=== PATIENT | male | born 1980 | race Caucasian/White ===

== ENCOUNTER 2017-08-06 16:15 | Inpatient (IN) | payer OTHER ==
[~2017-08-06] VITALS: Ht 185.4 cm; Wt 120.3 kg
[2017-08-06] MEDS ORDERED: SOD CHLORIDE 0.9% 1,000 ML IV STA (17:24)
[2017-08-06] MEDS ORDERED: ONDANSETRON 4 MG INJ IV STA (17:24)
[2017-08-06] MEDS ORDERED: KETOROLAC 30 MG INJ IV STA (17:24)
[2017-08-06 18:31] LABS: BASOPHIL # 0.1 10^3/ul (0.0-0.1); BASOPHILS % 0.3 % (0.0-2.0); EOSINOPHILS # 0.1 10^3/ul (0.0-0.5); EOSINOPHILS % 0.8 % (0.0-7.0); HEMATOCRIT 44.4 % (42.0-52.0); LYMPHOCYTES # 1.4 10^3/ul (0.8-2.9); LYMPHOCYTES % 8.8 % (15.0-51.0); MEAN CORPUSCULAR HEMOGLOBIN 29.1 pg (29.0-33.0); MEAN CORPUSCULAR HGB CONC 33.8 g/dl (32.0-37.0); MEAN CORPUSCULAR VOLUME 86.2 fl (82.0-101.0); MEAN PLATELET VOLUME 10.9 fl (7.4-10.4); MONOCYTE # 0.6 10^3/ul (0.3-0.9); MONOCYTES % 3.6 % (0.0-11.0); NEUTROPHIL # 13.6 10^3/ul (1.6-7.5); NEUTROPHILS % 86.2 % (39.0-77.0); PLATELET COUNT 353 10^3/UL (140-415); RED BLOOD COUNT 5.15 10^6/ul (4.70-6.10); RED CELL DISTRIBUTION WIDTH 12.4 % (11.5-14.5); WHITE BLOOD COUNT 15.7 10^3/ul (4.8-10.8)
[2017-08-06 18:32] LABS: ADD UMIC NO; UR ASCORBIC ACID 40 mg/dL (NEGATIVE); UR BILIRUBIN (Dip) NEGATIVE (NEGATIVE); UR BLOOD (Dip) NEGATIVE (NEGATIVE); UR CLARITY CLEAR (CLEAR); UR COLOR YELLOW (YELLOW); UR GLUCOSE (Dip) NEGATIVE (NEGATIVE); UR KETONES (Dip) NEGATIVE (NEGATIVE); UR LEUKOCYTE ESTERASE (Dip) NEGATIVE Leu/ul (NEGATIVE); UR NITRITE (Dip) NEGATIVE (NEGATIVE); UR SPECIFIC GRAVITY (Dip) 1.027 (1.003-1.030); UR TOTAL PROTEIN (Dip) NEGATIVE (NEGATIVE); UR UROBILINOGEN (Dip) 1+ mg/dL (NEGATIVE)
[2017-08-06 18:52] LABS: ALBUMIN 4.5 g/dl (3.3-4.9); ALBUMIN/GLOBULIN RATIO 1.25; BILIRUBIN,INDIRECT 0.6 mg/dl (0-1.1); BILIRUBIN,TOTAL 0.6 mg/dl (0.2-1.3); CALCIUM 9.2 mg/dl (8.4-10.2); CREATININE 0.75 mg/dl (0.61-1.24); POTASSIUM 3.9 mmol/L (3.5-5.1); TOTAL PROTEIN 8.1 g/dl (6.1-8.1)
--- NOTE | 2017-08-06 19:07 | RADRPT ---
PROCEDURE: CT Abdomen and Pelvis without contrast. CLINICAL INDICATION: Lower abdominal pain. TECHNIQUE: CT scan of the abdomen and pelvis without contrast was performed on a multidetector hig h-resolution CT scanner. The patient was scanned without intravenous contrast. Coronal and sagittal reformatted images were obtained from the axial source images. Images were reviewed on a high-resol [employer] PACS workstation. The total exam CTDI equals 23.64 mGy and the total exam DLP equals 1521.63 m Gy-cm. One or more of the following dose reduction techniques were used: - Automated exposure control. - Adjustment of the mA and/or kV according to patient size. - Use of iterative reconstruction technique. COMPARISON: None. FINDINGS: The lung bases are clear except for mild posterior dependent atelectasis. The heart size is normal, without pericardial thickening or effusion. The liver is enlarged, measuring up to 20 cm at the right midclavicular line. The liver attenuation is within normal limits. The liver surface appears smooth. There is no evidence of discrete solid he patic mass or intrahepatic biliary ductal dilatation. The gallbladder is unremarkable. The spleen, p ancreas, bilateral adrenal glands, and bilateral kidneys are within normal limits in size, morpholog y, and attenuation. There is no hydronephrosis or hydroureter. No perirenal collection is seen. The small bowel is unremarkable, without evidence of obstruction or focal mural wall thickening. The appendix is fluid-filled and mildly dilated, measuring up to 8 mm in diameter and there is mild per iappendiceal fat stranding / inflammatory change (series 3, image 116; series 601 images 57-63). The findings are suggestive of early acute appendicitis. There is no evidence of large bowel obstruction. There is extensive sigmoid diverticulosis and exten sive fat stranding / inflammatory changes surrounding the sigmoid colon, as well as a moderate amoun t of free fluid within the pelvis. There is a more organized collection of fluid containing gas with in the left lower pelvis measuring 5.3 cm x 2.2 cm x 5.8 cm (series 3, image 163; series 602, image 84). The findings are consistent with acute sigmoid diverticulitis with secondary pelvic abscess/con tained perforation. No definite free air is seen. The aorta is of normal caliber. There is no retroperitoneal lymphadenopathy. The kishor hepatis reg ion is clear. The pelvic organs are normal. The pelvic sidewalls and inguinal regions are clear. No mass or adeno karyn is seen. The surrounding osseous structures are unremarkable. No suspicious osteolytic or osteoblastic lesio n is detected. IMPRESSION: 1. Acute sigmoid diverticulitis with adjacent left lower pelvic abscess/contained perforation measur ing 5.3 cm x 2.2 cm x 5.8 cm, with additional free fluid noted within the pelvis. 2. Mildly dilated appendix measuring up to 8 mm in diameter with mild periappendiceal inflammatory c hanges, consistent with early acute appendicitis. 3. Hepatomegaly. Call report was made to CHARISSE Corado at 19:00 on 08/06/2017. RPTAT: [facility] Physician Rodney Date Time Electronically viewed and signed by Physician Rodney on 08/06/2017 19:06 JAYESH/
--- NOTE | 2017-08-06 19:11 | ERD ---
ER Documentation Chief Complaint Date/Time DATE: 08/06/17 TIME: 19:06 Chief Complaint ABDOMINAL PAIN HPI Patient is a 37-year-old male with a past medical history of hypertension and hyperlipidemia presents to the emergency department for concerns of bilateral lower abdominal pain for 1 week. Patient states initially the pain was episodic in nature however today the pain became persistent and constant. Patient describes the pain to be sharp. Patient states the pain does occasionally radiate into his groin. Patient denies the pain starting in his testicular region. Patient denies dysruai . patient denies any fevers, chills, nausea, vomiting, rectal bleeding, diarrhea or hematuria. Patient does report some pain with urination. No recent travel. No sick contacts. Last PO intake at 2pm. ROS All systems reviewed and are negative except as per history of present illness. Allergies Allergies: Coded Allergies: No Known Allergy (Unverified , 08/06/17) PMhx/Soc Medical and Surgical Hx: pt denies Medical Hx, pt denies Surgical Hx Hx Alcohol Use: No Hx Substance Use: No Hx Tobacco Use: No Physical Exam Vitals Vital Signs Date Time Temp Pulse Resp B/P Pulse Ox O2 Delivery O2 Flow Rate FiO2 08/06/17 17:13 99.4 84 18 154/88 98 Physical Exam GENERAL: Well-developed, well-nourished male. Appears in no acute distress. HEAD: Normocephalic, atraumatic. EYES: Pupils are equally reactive bilaterally. EOMs grossly intact. No conjunctival erythema. ENT: Moist mucous membranes. No uvula deviation. No kissing tonsils. NECK: Supple. No meningismus. Normal range of motion of the neck. LUNG: Clear to auscultation bilaterally. No rhonchi, wheezing, rales or coarse breath sounds. HEART: Regular rate and rhythm. No murmurs, rubs or gallops. ABDOMEN: . Soft, and nondistended. Tender to palpation in bilateral lower quadrants. Positive bowel sounds in all four quadrants. No rebound tenderness, no guarding. (-) McBurney's point tenderness. No CVA tenderness. EXTREMITIES: Equal pulses bilaterally. No peripheral clubbing, cyanosis or edema. No unilateral leg swelling. NEUROLOGIC: Alert and oriented. Moving all four extremities without any difficulty. Normal speech. Steady gait. SKIN: Normal color. Warm and dry. No rashes or lesions. Result Diagram: 08/06/178 08/06/178 Results 24 hrs Laboratory Tests Test 08/06/17 18:18 White Blood Count 15.710^3/ul Red Blood Count 5.1510^6/ul Hemoglobin 15.0g/dl Hematocrit 44.4% Mean Corpuscular Volume 86.2fl Mean Corpuscular Hemoglobin 29.1pg Mean Corpuscular Hemoglobin Concent 33.8g/dl Red Cell Distribution Width 12.4% Platelet Count 38734^3/UL Mean Platelet Volume 10.9fl Neutrophils % 86.2% Lymphocytes % 8.8% Monocytes % 3.6% Eosinophils % 0.8% Basophils % 0.3% Nucleated Red Blood Cells % 0.0/100WBC Neutrophils # 13.610^3/ul Lymphocytes # 1.410^3/ul Monocytes # 0.610^3/ul Eosinophils # 0.110^3/ul Basophils # 0.110^3/ul Nucleated Red Blood Cells # 0.010^3/ul Urine Color YELLOW Urine Clarity CLEAR Urine pH 5.0 Urine Specific [place] 1.027 Urine Ketones NEGATIVEmg/dL Urine Nitrite NEGATIVEmg/dL Urine Bilirubin NEGATIVEmg/dL Urine Urobilinogen 1+mg/dL Urine Leukocyte Esterase NEGATIVELeu/ul Urine Hemoglobin NEGATIVEmg/dL Urine Glucose NEGATIVEmg/dL Urine Total Protein NEGATIVEmg/dl Sodium Level 144mmol/L Potassium Level 3.9mmol/L Chloride Level 105mmol/L Carbon Dioxide Level 28mmol/L Anion Gap 15 Blood Urea Nitrogen 14mg/dl Creatinine 0.75mg/dl Glucose Level 96mg/dl Calcium Level 9.2mg/dl Total Bilirubin 0.6mg/dl Direct Bilirubin 0.00mg/dl Indirect Bilirubin 0.6mg/dl Aspartate Amino Transf (AST/SGOT) 18IU/L Alanine Aminotransferase (ALT/SGPT) 41IU/L Alkaline Phosphatase 68IU/L Total Protein 8.1g/dl Albumin 4.5g/dl Globulin 3.60g/dl Albumin/Globulin Ratio 1.25 Lipase 43U/L Current Medications Medications (Trade) Dose Ordered Sig/Marguerite Route PRN Reason Start Time Stop Time Status Last Admin Dose Admin Sodium Chloride (NS) 1,000 ml @ 1,000 mls/hr Q1H STAT IV 08/06/17 17:24 08/06/17 18:23 DC 08/06/17 18:33 Ondansetron HCl (Zofran Inj) 4 mg ONCE STAT IV 08/06/17 17:24 08/06/17 17:25 DC 08/06/17 18:34 Ketorolac Tromethamine 30 mg 30 mg ONCE STAT IV 08/06/17 17:24 08/06/17 17:25 DC 08/06/17 18:35 Piperacillin Sod/ Tazobactam Sod (Zosyn 3.375gm/ 100 ml (Pmx)) 100 ml @ 200 mls/hr ONCE ONCE IVPB 08/06/17 19:30 08/06/17 19:59 Morphine Sulfate (morphine) 4 mg ONCE STAT IV 08/06/17 19:23 08/06/17 19:24 DC Procedures/MDM ED COURSE: The patient was stable throughout ED course. I kept the patient and/or family informed of laboratory and diagnostic imaging results throughout the ED course. DIAGNOSTIC IMAGING: Read by radiologist. DIAGNOSTIC IMAGING REPORT Patient: KERLINE DAVIS : 1980 Age: 37 Sex: M MR #: [id number] DOS: 08/06/17 1724 Ordering MD: JUDE FRITZ PA-C Location: [facility] Room/Bed: PROCEDURE: CT Abdomen and Pelvis without contrast. CLINICAL INDICATION: Lower abdominal pain. TECHNIQUE: CT scan of the abdomen and pelvis without contrast was performed on a multidetector high-resolution CT scanner. The patient was scanned without intravenous contrast. Coronal and sagittal reformatted images were obtained from the axial source images. Images were reviewed on a high-resolution PACS workstation. The total exam CTDI equals 23.64 mGy and the total exam DLP equals 1521.63 mGy-cm. One or more of the following dose reduction techniques were used: - Automated exposure control. - Adjustment of the mA and/or kV according to patient size. - Use of iterative reconstruction technique. COMPARISON: None. FINDINGS: The lung bases are clear except for mild posterior dependent atelectasis. The heart size is normal, without pericardial thickening or effusion. The liver is enlarged, measuring up to 20 cm at the right midclavicular line. The liver attenuation is within normal limits. The liver surface appears smooth. There is no evidence of discrete solid hepatic mass or intrahepatic biliary ductal dilatation. The gallbladder is unremarkable. The spleen, pancreas , bilateral adrenal glands, and bilateral kidneys are within normal limits in size, morphology, and attenuation. There is no hydronephrosis or hydroureter. No perirenal collection is seen. The small bowel is unremarkable, without evidence of obstruction or focal mural wall thickening. The appendix is fluid-filled and mildly dilated, measuring up to 8 mm in diameter and there is mild periappendiceal fat stranding / inflammatory change (series 3, image 116; series 601 images 57-63). The findings are suggestive of early acute appendicitis. There is no evidence of large bowel obstruction. There is extensive sigmoid diverticulosis and extensive fat stranding / inflammatory changes surrounding the sigmoid colon, as well as a moderate amount of free fluid within the pelvis. There is a more organized collection of fluid containing gas within the left lower pelvis measuring 5.3 cm x 2.2 cm x 5.8 cm (series 3, image 163; series 602, image 84). The findings are consistent with acute sigmoid diverticulitis with secondary pelvic abscess/contained perforation. No definite free air is seen. The aorta is of normal caliber. There is no retroperitoneal lymphadenopathy. The kishor hepatis region is clear. The pelvic organs are normal. The pelvic sidewalls and inguinal regions are clear. No mass or adenopathy is seen. The surrounding osseous structures are unremarkable. No suspicious osteolytic or osteoblastic lesion is detected. IMPRESSION: 1. Acute sigmoid diverticulitis with adjacent left lower pelvic abscess/ contained perforation measuring 5.3 cm x 2.2 cm x 5.8 cm, with additional free fluid noted within the pelvis. 2. Mildly dilated appendix measuring up to 8 mm in diameter with mild periappendiceal inflammatory changes, consistent with early acute appendicitis. 3. Hepatomegaly. Call report was made to CHARISSE Corado at 19:00 on 08/06/2017. RPTAT: [facility] Physician Rodney Date Time Electronically viewed and signed by Physician Rodney on 08/06/2017 19: 06 RC/ CC: JUDE FRITZ PA-C PROCEDURES: None. MEDICATIONS GIVEN: IV fluids, Toradol, Zofran, Morphine, Zosyn Patient tolerated medication well with no adverse reactions. Patient reported improvement in pain. MEDICAL DECISION MAKING: Patient is a 37-year-old male who presents with bilateral lower abdominal pain 1 week which has now become persistent today. Vital signs were reviewed. Patient is afebrile. CBC showed WBC count of 15.7 with neutrophelia. CMP showed no evidence of electrolyte abnormalities, severe acidosis, alkalosis, renal failure, or liver disease. Lipase showed no evidence of acute pancreatitis. UA showed no evidence of acute infection or hematuria. CT abdomen and pelvis showed 1. Acute sigmoid diverticulitis with adjacent left lower pelvic abscess/ contained perforation measuring 5.3 cm x 2.2 cm x 5.8 cm, with additional free fluid noted within the pelvis. 2. Mildly dilated appendix measuring up to 8 mm in diameter with mild periappendiceal inflammatory changes, consistent with early acute appendicitis. 3. Hepatomegaly. I discussed the patient's findings with my supervising physician Dr. Ferreira who also examined the patient. At this time, the patient's presentation is most consistent with acute sigmoid diverticulitis with an adjacent abscess. Patient also has a dilated appendix which may resemble early appendicitis. Patient will be admitted for further management and workup. Patient was given Zosyn here in the emergency department. Patient was stable throughout the ED course. Low suspicion for UTI, pyelonephritis, nephrolithiasis, pancreatitis, cholecystitis, testicular torsion. Disclaimer: Inadvertent spelling and grammatical errors are likely due to EHR/ dictation software use and do not reflect on the overall quality of patient care. Also, please note that the electronic time recorded on this note does not necessarily reflect the actual time of the patient encounter. Departure Diagnosis: Primary Impression: Appendicitis Appendicitis type: acute appendicitis Acute appendicitis type: other Qualified Code: K35.89 - Other acute appendicitis Additional Impression: Diverticulitis Diverticulitis site: unspecified part of intestinal tract Diverticulitis bleeding: unspecified bleeding status Diverticulitis complication: with abscess Qualified Code: K57.80 - Diverticulitis of intestine with abscess, unspecified bleeding status, unspecified part of intestinal tract Condition: Critical JUDE FRITZ PA-C Aug 06, 2017 19:11
[2017-08-06] MEDS ORDERED: morphine 4 MG/ML VIAL IV STA (19:23)
[2017-08-06] MEDS ORDERED: PIPER-TAZO 3.375 GM IV (PMX) 100 ML IVPB ONE (19:30)
--- NOTE | 2017-08-06 21:13 | EN ---
Date/Time of Note Date/Time of Note DATE: 08/06/17 TIME: 21:12 ER Progress Note I have seen and evaluated the patient along with the PA and/or COMPUTER SPECIALIST provider. I agree with the evaluation and plan of care. Please see their documentation for full ER course and evaluation. In short: Patient with approximately 7 days of abdominal pain On exam: Focal tenderness to left lower quadrant with voluntary guarding Assessment and plan: CT concerning for perforated diverticulitis, concern for possible appendicitis but based on clinical exam this is more consistent with likely perforated diverticulitis. The patient is n.p.o. given IV fluids and Zosyn. I spoke to Dr. Uriostegui will consult on the case and recommends IR involvement. Accepting care team and consultations: I discussed the current laboratory data, diagnostic imaging and emergency care provided. Admitting team: Dr. Conrad Admitting team indication: Insurance directed Consulting services: REZA Dewey MD Aug 06, 2017 21:13
[2017-08-06] MEDS ORDERED: ONDANSETRON 4 MG INJ IV PRN (21:30)
[2017-08-06] MEDS ORDERED: ACETAMINOPHEN 325 MG TAB PO PRN (21:30)
[2017-08-06 21:50] VITALS: BP 137/77; PULSE 96; RESP 16
[2017-08-06 22:41] VITALS: Ht 185.4 cm; Wt 120.3 kg
[2017-08-06] MEDS ORDERED: VANCOMYCIN IV PER PHARMACY XX SCH (23:00)
[2017-08-06] MEDS: morphine 4 MG/ML VIAL IV PRN (23:10)
[2017-08-06] MEDS: DEXTROSE 5%-0.45% NACL 1,000 ML IV SCH (23:35)
[2017-08-07] MEDS: PIPER-TAZO 3.375 GM IV (PMX) 100 ML IVPB SCH ×4 (00:40→17:54)
[2017-08-07] MEDS ORDERED: VANCOMYCIN 2 GM in SOD CHLORIDE 0.9% 500 ML IVPB SCH (02:00)
[2017-08-07 02:17] VITALS: BP 130/76; RESP 18
[2017-08-07] MEDS: morphine 4 MG/ML VIAL IV PRN ×4 (03:59→14:17)
[2017-08-07 05:46] LABS: BASOPHILS % 0.2 % (0.0-2.0); EOSINOPHILS # 0.1 10^3/ul (0.0-0.5); EOSINOPHILS % 0.4 % (0.0-7.0); HEMATOCRIT 40.2 % (42.0-52.0); HEMOGLOBIN 13.1 g/dl (14.0-18.0); LYMPHOCYTES # 1.8 10^3/ul (0.8-2.9); LYMPHOCYTES % 11.2 % (15.0-51.0); MEAN CORPUSCULAR HEMOGLOBIN 28.2 pg (29.0-33.0); MEAN CORPUSCULAR HGB CONC 32.6 g/dl (32.0-37.0); MEAN CORPUSCULAR VOLUME 86.6 fl (82.0-101.0); MEAN PLATELET VOLUME 10.9 fl (7.4-10.4); MONOCYTE # 0.9 10^3/ul (0.3-0.9); MONOCYTES % 5.5 % (0.0-11.0); NEUTROPHIL # 13.3 10^3/ul (1.6-7.5); NEUTROPHILS % 82.4 % (39.0-77.0); PLATELET COUNT 330 10^3/UL (140-415); RED BLOOD COUNT 4.64 10^6/ul (4.70-6.10); RED CELL DISTRIBUTION WIDTH 12.7 % (11.5-14.5); WHITE BLOOD COUNT 16.2 10^3/ul (4.8-10.8)
[2017-08-07 06:34] LABS: ALBUMIN 3.8 g/dl (3.3-4.9); ALBUMIN/GLOBULIN RATIO 1.18; BILIRUBIN,INDIRECT 1.5 mg/dl (0-1.1); BILIRUBIN,TOTAL 1.5 mg/dl (0.2-1.3); CALCIUM 8.3 mg/dl (8.4-10.2); CREATININE 0.69 mg/dl (0.61-1.24); MAGNESIUM 1.7 mg/dl (1.7-2.5); PHOSPHORUS 3.6 mg/dl (2.5-4.9); POTASSIUM 3.9 mmol/L (3.5-5.1)
[2017-08-07] MEDS: DEXTROSE 5%-0.45% NACL 1,000 ML IV SCH ×4 (07:00→23:00)
--- NOTE | 2017-08-07 07:21 | HP ---
Date/Time of Note Date/Time of Note DATE: 08/07/17 TIME: 07:15 Assessment/Plan VTE Prophylaxis VTE Prophylaxis Intervention: SCD's Assessment/Plan Assessment/Plan ASSESSMENT 37-year-old male presented with abdominal pain, found to be septic secondary to perforated diverticulitis with abscess and possibly early appendicitis. PLAN Keep n.p.o. with IV fluid IV antibiotics Follow-up blood culture results Pain management General surgery IR for abscess drainage HPI/ROS Admit Date/Time Admit Date/Time Aug 06, 2017 at 21:11 Hx of Present Illness This is a 37-year-old male with a history of hypertension and diverticulitis who presented to the emergency department complaining of abdominal pain 1 week. Pain is diffuse but worse on the bilateral lower region, right worse than left. He also reported associated nausea. When he presented to the ER, CT /abdomen pelvis showed perforated diverticulitis and an early acute appendicitis. PMH/Family/Social Social History Smoking Status: Never smoker Exam/Review of Systems Vital Signs Vitals Vital Signs Date Time Temp Pulse Resp B/P Pulse Ox O2 Delivery O2 Flow Rate FiO2 08/07/17 02:17 98.3 87 18 130/76 93 08/06/17 21:50 Room Air Intake and Output 08/06/17 08/06/17 08/07/17 15:00 23:00 07:00 Intake Total 480 ml Balance 480 ml Exam Constitutional: alert, oriented, well developed Head: atraumatic, normocephalic Eyes: PERRL Respiratory: clear to auscultation, normal air movement Cardiovascular: nl pulses, regular rate and rhythm Gastrointestinal: tender Extremities: normal pulses Labs Result Diagram: 08/07/17 0533 08/07/17 0533 Medications Medications Current Medications Morphine Sulfate 4 mg 4 mg Q4H PRN IV PAIN Last administered on 08/07/17 03: 59; Admin Dose 4 MG; Start 08/06/17 at 23:00 Dextrose/Sodium Chloride (D5-1/2ns) 1,000 ml @ 125 mls/hr Q8H IV Last administered on 08/06/17 23:35; Admin Dose 125 MLS/HR; Start 08/06/17 at 23:00 Ondansetron HCl 4 mg 4 mg Q6H PRN IV NAUSEA AND/OR VOMITING; Start 08/06/17 at 23:00 Piperacillin Sod/ Tazobactam Sod 100 ml @ 200 mls/hr Q6 IVPB Last administered on 08/07/17t 06:27; Admin Dose 200 MLS/HR; Start 08/07/17 at 00: 00 Vancomycin HCl/ Sodium Chloride (Vancocin/NS) 250 ml @ 83.333 mls/ hr Q8H IVPB ; Start 08/07/17 at 10:00 NICOLE ROSARIO MD Aug 07, 2017 07:21
[2017-08-07 08:33] VITALS: BP 136/77; RESP 16
[2017-08-07] MEDS: VANCOMYCIN 1.5 GM in SOD CHLORIDE 0.9% 250 ML IVPB SCH ×2 (10:20→18:38)
[2017-08-07 15:09] VITALS: BP 134/78; RESP 18
--- NOTE | 2017-08-07 15:28 | PN ---
Date/Time of Note Date/Time of Note DATE: 08/07/17 TIME: 15:25 Assessment/Plan VTE Prophylaxis VTE Prophylaxis Intervention: SCD's Assessment/Plan Chief Complaint/Hosp Course Patient is a 37-year-old male with a past medical history of hypertension who presents with worsening abdominal pain for 1 week, found to have possible abscess and appendicitis. Assessment and plan Abdominal pain Acute sigmoid diverticulitis with abscess Perforated abscess Appendicitis Hypertension -General surgery has been consulted, will see patient, keep n.p.o. for now, pain medication, antibiotics -Radiology cannot perform abscess drainage, too small of an abscess -Supportive care for now, general surgery recommendations appreciated -Continue home meds when able Problems: Subjective 24 Hr Interval Summary Free Text/Dictation moderate abdominal pain. Exam/Review of Systems Vital Signs Vitals Vital Signs Date Time Temp Pulse Resp B/P Pulse Ox O2 Delivery O2 Flow Rate FiO2 08/07/17 15:09 99.4 89 18 134/78 93 08/06/17 21:50 Room Air Intake and Output 08/06/17 08/06/17 08/07/17 15:00 23:00 07:00 Intake Total 480 ml Balance 480 ml Exam Physical exam General: Patient is laying in bed and answers questions appropriately Mentation: Patient is alert and oriented 4, Head: Normocephalic atraumatic Eyes: EOMI, pupils reactive to light Neck: Supple, nontender, midline Respiratory: Clear to auscultation bilaterally Cardiovascular: regular rate, no obvious murmurs Gastrointestinal: mildly tender to palpation, worse in lower quadrants, bowel sounds heard. Neurological: Moves all extremities spontaneously Skin: No new skin lesions Results Result Diagram: 08/07/17 0533 08/07/17 0533 Results 24 hrs Laboratory Tests Test 08/06/17 18:18 08/07/17 05:33 White Blood Count 15.7 H 16.2 H Red Blood Count 5.15 4.64 L Hemoglobin 15.0 13.1 L Hematocrit 44.4 40.2 L Mean Corpuscular Volume 86.2 86.6 Mean Corpuscular Hemoglobin 29.1 28.2 L Mean Corpuscular Hemoglobin Concent 33.8 32.6 Red Cell Distribution Width 12.4 12.7 Platelet Count 353 330 Mean Platelet Volume 10.9 H 10.9 H Neutrophils % 86.2 H 82.4 H Lymphocytes % 8.8 L 11.2 L Monocytes % 3.6 5.5 Eosinophils % 0.8 0.4 Basophils % 0.3 0.2 Nucleated Red Blood Cells % 0.0 0.0 Neutrophils # 13.6 H 13.3 H Lymphocytes # 1.4 1.8 Monocytes # 0.6 0.9 Eosinophils # 0.1 0.1 Basophils # 0.1 0.0 Nucleated Red Blood Cells # 0.0 0.0 Urine Color YELLOW Urine Clarity CLEAR Urine pH 5.0 Urine Specific [place] 1.027 Urine Ketones NEGATIVE Urine Nitrite NEGATIVE Urine Bilirubin NEGATIVE Urine Urobilinogen 1+ H Urine Leukocyte Esterase NEGATIVE Urine Hemoglobin NEGATIVE Urine Glucose NEGATIVE Urine Total Protein NEGATIVE Sodium Level 144 140 Potassium Level 3.9 3.9 Chloride Level 105 109 Carbon Dioxide Level 28 25 Anion Gap 15 10 # Blood Urea Nitrogen 14 13 Creatinine 0.75 0.69 Glucose Level 96 124 Calcium Level 9.2 8.3 L Total Bilirubin 0.6 1.5 H Direct Bilirubin 0.00 0.00 Indirect Bilirubin 0.6 1.5 H Aspartate Amino Transf (AST/SGOT) 18 13 L Alanine Aminotransferase (ALT/SGPT) 41 37 Alkaline Phosphatase 68 59 Total Protein 8.1 7.0 # Albumin 4.5 3.8 Globulin 3.60 H 3.20 Albumin/Globulin Ratio 1.25 1.18 Lipase 43 Phosphorus Level 3.6 Magnesium Level 1.7 Medications Medications Current Medications Dextrose/Sodium Chloride (D5-1/2ns) 1,000 ml @ 125 mls/hr Q8H IV Last administered on 08/06/17 23:35; Admin Dose 125 MLS/HR; Start 08/06/17 at 23:00 Ondansetron HCl 4 mg 4 mg Q6H PRN IV NAUSEA AND/OR VOMITING; Start 08/06/17 at 23:00 Piperacillin Sod/ Tazobactam Sod 100 ml @ 200 mls/hr Q6 IVPB Last administered on 08/07/17 13:10; Admin Dose 200 MLS/HR; Start 08/07/17 at 00: 00 Vancomycin HCl/ Sodium Chloride (Vancocin/NS) 250 ml @ 83.333 mls/ hr Q8H IVPB Last administered on 08/07/17 10:20; Admin Dose 83.333 MLS/HR; Start at 10:00 Miscellaneous Information (*Rx Drug Level Order Reminder*) 1 ONCE ONCE XX ; Start 08/08/17 at 01:00; Stop 08/08/17 at 01:01 Hydromorphone HCl (Dilaudid) 1 mg Q4H PRN IV PAIN; Start 08/07/17 at 15:30 JOSE F DE PAZ Aug 07, 2017 15:28
[2017-08-07] MEDS: HYDROmorphONE 1 MG/ML SYG IV PRN ×2 (15:42→19:50)
--- NOTE | 2017-08-07 17:32 | CONS ---
Date/Time of Note Date/Time of Note DATE: 08/07/17 TIME: 17:32 Assessment/Plan Assessment/Plan Additional Assessment/Plan [facility] INPATIENT CONSULTATION NOTE DATE OF SERVICE: 08/07/2017 PLACE OF SERVICE: [facility], sixth floor ASSESSMENT AND PLAN: A very-pleasant 37-year-old gentleman with comorbidity of BMI 35, presenting with abdominal pain which is likely due to Hinchey class II diverticulitis with focal perforation but adequate containment. I do not personally believe that there is active acute appendicitis, but the current treatment for the diverticulitis should also treat any early appendicitis that the patient may have. No indication for acute surgical intervention. Discussed with patient and his and answered all questions. Patient and family appear to understand and agreed with plans. With above assessment, I've recommended the followin. Keep in-house 2. N.p.o. 3. Intravenous fluids 4. Broad-spectrum antimicrobials (usual regimen is IV Cipro and IV Flagyl) with plans of oral conversion once the patient clinically improves 5. Strict I's and O's 6. Labs in a.m. 7. Once patient starts clinically improving (we will decide in a multidisciplinary fashion), the plan would be to start patient on liquid diet and advancing slowly to a high-fiber diet 8. Long-term plan would be outpatient colonoscopy after 2-3 months from current episode Thank you very much for having me involved in the care of this very pleasant patient and wonderful family. If you have any questions, please feel free to contact me at [phone]. Nature of presenting problem: High severity Please note that, given the extensive number of diagnoses or management options , the extensive amount and/or complexity of data needed to be reviewed, and high risk of complications and/or morbidity or mortality, this qualifies as high complexity type of decision-making. Disclaimers: 1. Inadvertent spelling and grammatical errors are likely due to electronic health record (EHR)/dictation software used and do not reflect on the quality of delivered patient care. 2. The electronic timestamp recorded on this note does not necessarily reflect the actual date and time of the visit or the service. 3. Portions of this note may have been created through electronic templates and computer algorithms that might bring in information either from the system or from other physicians and providers. Please note that such information may or may not contain errors, the occurrence of which are outside of my control. In general (but not always) this happens either in the beginning or at the end of the note. The portion of the note that I have created are generally done in 1 continuous block of text, flanked at the beginning and at the end by " ", and entered into one field in the EHR. 4. There may be other unanticipated errors in the note that are outside of my control. I can only attest to the portions of the note that I have created. Updated clinical summary: A very-pleasant 37-year-old gentleman with comorbidity of BMI 35, presenting with abdominal pain which is likely due to Hinchey class II diverticulitis with focal perforation but adequate containment. Comorbidities: 1. BMI 35 2. Possibly anxiety CONSULTATION REQUESTED BY: Jimenez Conrad MD HISTORY OF PRESENT ILLNESS: The patient is a very pleasant 37-year-old gentleman with above-mentioned comorbidities whom we were kindly asked consult regarding management of what appears to be abdominal pain from locally perforated but contained diverticulitis and question of appendicitis. Patient reported having abdominal pain for approximately a week. It started off in the lower mid pelvis and progressively got worse in the left side to a point where he was 10 out of 10 near the time of admission. Patient had no nausea or vomiting and felt hot but did not measure his temperatures. Last bowel movement was yesterday. Last flatus was today. No blood in the stool or urine. Similar episodes approximately 2 years ago but no hospital care or other visits to the doctor for it. No prior operations in the past. No other major complaints during my visit. ALLERGIES: NO KNOWN DRUG ALLERGIES MEDICATIONS Documented in the electronic records and reviewed by me. Please see the electronic records for details, as well as details for inpatient medications which were also reviewed by me. SOCIAL HISTORY: The patient lives with family. 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 REVIEW OF SYSTEMS: Other than mentioned above, there were no other pertinent positives or pertinent negatives in an otherwise complete 14 point review of systems. PHYSICAL EXAMINATION GENERAL: The patient appears to be a very pleasant gentleman of descent lying in bed, appearing stated age, and otherwise in no acute distress. BMI: 35. Patient had a sariah bear in bed with him. VITAL SIGNS: AVSS (please also see auto important data if available as well as the electronic records) HEENT: Normocephalic and atraumatic. Extraocular muscles and hearing are grossly intact bilaterally and symmetrically. Sclerae are nonicteric. Oral cavity is clear; oral mucosa appear to be pink and moist. Dentition: fair. NECK: Supple. There is no lymphadenopathy or JVD. There is no submental, submandibular or supraclavicular lymphadenopathy. CHEST: Rises symmetrically with each breath; patient is breathing comfortably. There are no audible wheezes, rales or rhonchi on the gross exam. HEART: Pulse is regular and palpable on the right wrist. Capillary refill is normal. Carotid pulses are palpable bilaterally and symmetrically in the neck. EXTREMITIES: Lower extremities contain no pitting edema around the ankles bilaterally and symmetrically. ABDOMEN: Abdomen is soft, mildly tender to palpation in essentially all quadrants but somewhat more in the lower than upper quadrants and nondistended. No evidence of ascites, organomegaly, caput medusae, engorged subcutaneous veins, or other abnormalities. There are no peritoneal signs or guarding. SKIN: Appears to be pink and feels warm to touch. NEUROLOGIC: Awake, alert, and follows commands appropriately. LABORATORY DATA: See below IMAGING: See electronic chart. Please note that I've personally reviewed all pertinent available images and I agree in general with their overall reported findings. Consultation Date/Type/Reason Admit Date/Time Aug 06, 2017 at 21:11 Social History Smoking Status: Never smoker Exam/Review of Systems Vital Signs Vitals Vital Signs Date Time Temp Pulse Resp B/P Pulse Ox O2 Delivery O2 Flow Rate FiO2 08/07/17 15:09 99.4 89 18 134/78 93 08/06/17 21:50 Room Air Intake and Output 08/06/17 08/06/17 08/07/17 15:00 23:00 07:00 Intake Total 480 ml Balance 480 ml Results Result Diagram: 08/07/17 0533 08/07/17 0533 Results 24 hrs Laboratory Tests Test 08/06/17 18:18 08/07/17 05:33 White Blood Count 15.7 H 16.2 H Red Blood Count 5.15 4.64 L Hemoglobin 15.0 13.1 L Hematocrit 44.4 40.2 L Mean Corpuscular Volume 86.2 86.6 Mean Corpuscular Hemoglobin 29.1 28.2 L Mean Corpuscular Hemoglobin Concent 33.8 32.6 Red Cell Distribution Width 12.4 12.7 Platelet Count 353 330 Mean Platelet Volume 10.9 H 10.9 H Neutrophils % 86.2 H 82.4 H Lymphocytes % 8.8 L 11.2 L Monocytes % 3.6 5.5 Eosinophils % 0.8 0.4 Basophils % 0.3 0.2 Nucleated Red Blood Cells % 0.0 0.0 Neutrophils # 13.6 H 13.3 H Lymphocytes # 1.4 1.8 Monocytes # 0.6 0.9 Eosinophils # 0.1 0.1 Basophils # 0.1 0.0 Nucleated Red Blood Cells # 0.0 0.0 Urine Color YELLOW Urine Clarity CLEAR Urine pH 5.0 Urine Specific [place] 1.027 Urine Ketones NEGATIVE Urine Nitrite NEGATIVE Urine Bilirubin NEGATIVE Urine Urobilinogen 1+ H Urine Leukocyte Esterase NEGATIVE Urine Hemoglobin NEGATIVE Urine Glucose NEGATIVE Urine Total Protein NEGATIVE Sodium Level 144 140 Potassium Level 3.9 3.9 Chloride Level 105 109 Carbon Dioxide Level 28 25 Anion Gap 15 10 # Blood Urea Nitrogen 14 13 Creatinine 0.75 0.69 Glucose Level 96 124 Calcium Level 9.2 8.3 L Total Bilirubin 0.6 1.5 H Direct Bilirubin 0.00 0.00 Indirect Bilirubin 0.6 1.5 H Aspartate Amino Transf (AST/SGOT) 18 13 L Alanine Aminotransferase (ALT/SGPT) 41 37 Alkaline Phosphatase 68 59 Total Protein 8.1 7.0 # Albumin 4.5 3.8 Globulin 3.60 H 3.20 Albumin/Globulin Ratio 1.25 1.18 Lipase 43 Phosphorus Level 3.6 Magnesium Level 1.7 Medications Medications Current Medications Dextrose/Sodium Chloride (D5-1/2ns) 1,000 ml @ 125 mls/hr Q8H IV Last administered on 08/07/17t 16:49; Admin Dose 125 MLS/HR; Start 08/06/17 at 23:00 Ondansetron HCl 4 mg 4 mg Q6H PRN IV NAUSEA AND/OR VOMITING; Start 08/06/17 at 23:00 Piperacillin Sod/ Tazobactam Sod 100 ml @ 200 mls/hr Q6 IVPB Last administered on 08/07/17 13:10; Admin Dose 200 MLS/HR; Start 08/07/17 at 00: 00 Vancomycin HCl/ Sodium Chloride (Vancocin/NS) 250 ml @ 83.333 mls/ hr Q8H IVPB Last administered on 08/07/17 10:20; Admin Dose 83.333 MLS/HR; Start at 10:00 Miscellaneous Information (*Rx Drug Level Order Reminder*) 1 ONCE ONCE XX ; Start 08/08/17 at 01:00; Stop 08/08/17 at 01:01 Hydromorphone HCl (Dilaudid) 1 mg Q4H PRN IV PAIN Last administered on 15:42; Admin Dose 1 MG; Start 08/07/17 at 15:30 MARJAN BATES M.D. Aug 07, 2017 17:32
[2017-08-07] MEDS: ONDANSETRON 4 MG INJ IV PRN (19:50)
[2017-08-07 20:00] VITALS: BP 142/86; RESP 20
[2017-08-08] MEDS: METOCLOPRAMIDE 10 MG INJ IV PRN ×4 (00:32→20:38)
[2017-08-08] MEDS: HYDROmorphONE 1 MG/ML SYG IV PRN ×5 (00:35→23:38)
[2017-08-08] MEDS: PIPER-TAZO 3.375 GM IV (PMX) 100 ML IVPB SCH ×2 (00:35→05:07)
[2017-08-08] MEDS: VANCOMYCIN 1.5 GM in SOD CHLORIDE 0.9% 250 ML IVPB SCH (01:47)
[2017-08-08 02:00] VITALS: BP 117/52; RESP 20
[2017-08-08] MEDS: ONDANSETRON 4 MG INJ IV PRN (05:07)
[2017-08-08 06:23] LABS: BASOPHILS % 0.2 % (0.0-2.0); EOSINOPHILS # 0.1 10^3/ul (0.0-0.5); EOSINOPHILS % 0.9 % (0.0-7.0); HEMATOCRIT 39.4 % (42.0-52.0); HEMOGLOBIN 12.8 g/dl (14.0-18.0); LYMPHOCYTES # 1.5 10^3/ul (0.8-2.9); LYMPHOCYTES % 10.9 % (15.0-51.0); MEAN CORPUSCULAR HEMOGLOBIN 28.1 pg (29.0-33.0); MEAN CORPUSCULAR HGB CONC 32.5 g/dl (32.0-37.0); MEAN CORPUSCULAR VOLUME 86.6 fl (82.0-101.0); MEAN PLATELET VOLUME 10.8 fl (7.4-10.4); MONOCYTES % 7.3 % (0.0-11.0); NEUTROPHIL # 11.2 10^3/ul (1.6-7.5); NEUTROPHILS % 80.3 % (39.0-77.0); PLATELET COUNT 343 10^3/UL (140-415); RED BLOOD COUNT 4.55 10^6/ul (4.70-6.10); RED CELL DISTRIBUTION WIDTH 12.6 % (11.5-14.5)
[2017-08-08 06:53] LABS: CALCIUM 8.6 mg/dl (8.4-10.2); CREATININE 0.65 mg/dl (0.61-1.24); MAGNESIUM 1.8 mg/dl (1.7-2.5); PHOSPHORUS 3.1 mg/dl (2.5-4.9); POTASSIUM 3.5 mmol/L (3.5-5.1)
[2017-08-08] MEDS: DEXTROSE 5%-0.45% NACL 1,000 ML IV SCH ×2 (06:59→09:20)
[2017-08-08 08:07] VITALS: BP 132/83; RESP 18
[2017-08-08] MEDS ORDERED: CIPROFLOXACIN 400MG/D5W 200 ML IVPB SCH (10:00)
[2017-08-08] MEDS: metroNIDAZOLE 500 MG/NS (PMX) 100 ML IVPB SCH ×3 (10:06→22:11)
[2017-08-08] MEDS: LEVOFLOXACIN 750MG/D5W (PMX) 150 ML IVPB SCH (11:30)
[2017-08-08] MEDS ORDERED: POLYETHYLENE GLYCOL 17 GM PACKET PO ONE (12:00)
--- NOTE | 2017-08-08 13:58 | PN ---
Date/Time of Note Date/Time of Note DATE: 08/08/17 TIME: 13:56 Assessment/Plan VTE Prophylaxis VTE Prophylaxis Intervention: ambulation Lines/Catheters IV [facility]ter Type (from [facility]): Peripheral IV Assessment/Plan Chief Complaint/Hosp Course Patient is a 37-year-old male with a past medical history of hypertension who presents with worsening abdominal pain for 1 week, found to have possible abscess and appendicitis. Assessment and plan Abdominal pain Acute sigmoid diverticulitis with abscess Perforated abscess Appendicitis Hypertension -General surgery has been consulted, recs appreciated -patient had bowel movement, per surgery, ok to start clears -changing abx to levaquin, flagyl. -Radiology cannot perform abscess drainage, too small of an abscess -Supportive care for now, general surgery recommendations appreciated -Continue home meds when able -needs outpatient colonoscopy within 2 months DISPO: will evaluate clinically daily, will transition to PO meds when stable and dispo accordingly Problems: Subjective 24 Hr Interval Summary Free Text/Dictation mild abdominal pain still persists Exam/Review of Systems Vital Signs Vitals Vital Signs Date Time Temp Pulse Resp B/P Pulse Ox O2 Delivery O2 Flow Rate FiO2 08/08/17 08:07 98.0 87 18 132/83 91 08/06/17 21:50 Room Air Intake and Output 08/07/17 08/07/17 08/08/17 15:00 23:00 07:00 Intake Total 350 ml 945 ml 750 ml Balance 350 ml 945 ml 750 ml Exam Physical exam General: Patient is laying in bed and answers questions appropriately Mentation: Patient is alert and oriented 4, Head: Normocephalic atraumatic Eyes: EOMI, pupils reactive to light Neck: Supple, nontender, midline Respiratory: Clear to auscultation bilaterally Cardiovascular: regular rate, no obvious murmurs Gastrointestinal: mildly tender to palpation, worse in lower quadrants, bowel sounds heard. Neurological: Moves all extremities spontaneously Skin: No new skin lesions Results Result Diagram: 08/08/17 0551 08/08/1751 Results 24 hrs Laboratory Tests Test 08/08/17 00:50 08/08/17 05:51 Vancomycin Level Trough 13.0 White Blood Count 14.0 H Red Blood Count 4.55 L Hemoglobin 12.8 L Hematocrit 39.4 L Mean Corpuscular Volume 86.6 Mean Corpuscular Hemoglobin 28.1 L Mean Corpuscular Hemoglobin Concent 32.5 Red Cell Distribution Width 12.6 Platelet Count 343 Mean Platelet Volume 10.8 H Neutrophils % 80.3 H Lymphocytes % 10.9 L Monocytes % 7.3 Eosinophils % 0.9 Basophils % 0.2 Nucleated Red Blood Cells % 0.0 Neutrophils # 11.2 H Lymphocytes # 1.5 Monocytes # 1.0 H Eosinophils # 0.1 Basophils # 0.0 Nucleated Red Blood Cells # 0.0 Sodium Level 137 Potassium Level 3.5 Chloride Level 105 Carbon Dioxide Level 25 Anion Gap 11 Blood Urea Nitrogen 10 Creatinine 0.65 Glucose Level 126 Calcium Level 8.6 Phosphorus Level 3.1 Magnesium Level 1.8 Medications Medications Current Medications Dextrose/Sodium Chloride (D5-1/2ns) 1,000 ml @ 125 mls/hr Q8H IV Last administered on 08/08/17 09:20; Admin Dose 125 MLS/HR; Start 08/06/17 at 23:00 Ondansetron HCl (Zofran Inj) 4 mg Q6H PRN IV NAUSEA AND/OR VOMITING Last administered on 08/08/17 05:07; Admin Dose 4 MG; Start 08/06/17 at 23:00 Hydromorphone HCl (Dilaudid) 1 mg Q3H PRN IV PAIN Last administered on 08:01; Admin Dose 1 MG; Start 08/07/17 at 21:00 Metoclopramide HCl 10 mg 10 mg Q6H PRN IV NAUSEA Last administered on 08:01; Admin Dose 10 MG; Start 08/07/17 at 21:00 Metronidazole 100 ml @ 100 mls/hr Q8 IVPB Last administered on 08/08/17 10: 06; Admin Dose 100 MLS/HR; Start 08/08/17 at 10:00 Levofloxacin/ Dextrose (Levaquin 750 Mg/ D5W 150 ml (Pmx)) 150 ml @ 100 mls/hr Q24H IVPB Last administered on 08/08/17 11:30; Admin Dose 100 MLS/HR; Start 08/08/17 at 11:00 JOSE F DE PAZ Aug 08, 2017 13:58
[2017-08-08 14:19] VITALS: BP 119/65; RESP 18
--- NOTE | 2017-08-08 17:21 | PN ---
Date/Time of Note Date/Time of Note DATE: 08/08/17 TIME: 17:21 Assessment/Plan Lines/Catheters IV Catheter Type (from Nrs): Peripheral IV Assessment/Plan Assessment/Plan [facility] Progress Note Date of Service: 08/08/2017 Location of Service: [address] Today's Assessment & Plan: Overall has remained stable and doing relatively well. Abdomen appears to be slightly improved compared to yesterday. Awaiting further return of bowel function. No indication for acute surgical intervention. Discussed with patient and his and answered all questions. Patient and family appear to understand and agreed with plans. Previous assessment that applies today: A very-pleasant 37-year-old gentleman with comorbidity of BMI 35, presenting with abdominal pain which is likely due to Hinchey class II diverticulitis with focal perforation but adequate containment. I do not personally believe that there is active acute appendicitis, but the current treatment for the diverticulitis should also treat any early appendicitis that the patient may have. With above assessment, I've recommended the followin. Keep in-house 2. N.p.o. 3. Intravenous fluids 4. Broad-spectrum antimicrobials (usual regimen is IV Cipro and IV Flagyl) with plans of oral conversion once the patient clinically improves 5. Strict I's and O's 6. Labs in a.m. 7. Once patient starts clinically improving (we will decide in a multidisciplinary fashion), the plan would be to start patient on liquid diet and advancing slowly to a high-fiber diet 8. Long-term plan would be outpatient colonoscopy after 2-3 months from current episode Thank you very much for having me involved in the care of this very pleasant patient and wonderful family. If you have any questions, please feel free to contact me at [phone]. Nature of presenting problem: High severity Please note that, given the extensive number of diagnoses or management options , the extensive amount and/or complexity of data needed to be reviewed, and high risk of complications and/or morbidity or mortality, this qualifies as high complexity type of decision-making. Disclaimers: 1. Inadvertent spelling and grammatical errors are likely due to electronic health record (EHR)/dictation software used and do not reflect on the quality of delivered patient care. 2. The electronic timestamp recorded on this note does not necessarily reflect the actual date and time of the visit or the service. 3. Portions of this note may have been created through electronic templates and computer algorithms that might bring in information either from the system or from other physicians and providers. Please note that such information may or may not contain errors, the occurrence of which are outside of my control. In general (but not always) this happens either in the beginning or at the end of the note. The portion of the note that I have created are generally done in 1 continuous block of text, flanked at the beginning and at the end by " ", and entered into one field in the EHR. 4. There may be other unanticipated errors in the note that are outside of my control. I can only attest to the portions of the note that I have created. Updated clinical summary: A very-pleasant 37-year-old gentleman with comorbidity of BMI 35, presenting with abdominal pain which is likely due to Hinchey class II diverticulitis with focal perforation but adequate containment. Comorbidities: 1. BMI 35 2. Possibly anxiety Subjective: No major events or complaints; minimal abd pain and under control with medications; no n/v/d; no sob or cp; + bowel activity; + flatus; BM; minimal activity Objective: Vitals: See below Exam: GENERAL: On exam, the patient was laying in bed and appeared to be comfortable and in no acute distress. ABDOMEN: Soft, minimally tender, more in the lower quadrants and in the upper quadrants and less on the right than on the left, and nondistended. There are no peritoneal signs or guarding. SKIN: Skin appears to be pink and feels warm to touch. NEUROLOGIC: Patient is awake, alert, and follows commands appropriately. Exam/Review of Systems Vital Signs Vitals Vital Signs Date Time Temp Pulse Resp B/P Pulse Ox O2 Delivery O2 Flow Rate FiO2 08/08/17 14:19 97.8 63 18 119/65 95 08/06/17 21:50 Room Air Intake and Output 08/07/17 08/07/17 08/08/17 15:00 23:00 07:00 Intake Total 350 ml 945 ml 750 ml Balance 350 ml 945 ml 750 ml Results Result Diagram: 08/08/17 0551 08/08/17 0551 MARJAN BATES M.D. Aug 08, 2017 17:21
[2017-08-08 20:00] VITALS: BP 145/79; RESP 20
[2017-08-09 02:00] VITALS: BP 135/82; RESP 20
[2017-08-09] MEDS: METOCLOPRAMIDE 10 MG INJ IV PRN ×3 (04:03→17:57)
[2017-08-09] MEDS: HYDROmorphONE 1 MG/ML SYG IV PRN ×6 (04:25→21:06)
[2017-08-09 05:43] LABS: BASOPHILS % 0.3 % (0.0-2.0); EOSINOPHILS # 0.1 10^3/ul (0.0-0.5); HEMATOCRIT 38.8 % (42.0-52.0); HEMOGLOBIN 12.8 g/dl (14.0-18.0); LYMPHOCYTES # 1.5 10^3/ul (0.8-2.9); MEAN CORPUSCULAR HEMOGLOBIN 28.3 pg (29.0-33.0); MEAN CORPUSCULAR VOLUME 85.7 fl (82.0-101.0); MEAN PLATELET VOLUME 10.6 fl (7.4-10.4); MONOCYTES % 7.7 % (0.0-11.0); NEUTROPHIL # 10.7 10^3/ul (1.6-7.5); NEUTROPHILS % 79.6 % (39.0-77.0); PLATELET COUNT 355 10^3/UL (140-415); RED BLOOD COUNT 4.53 10^6/ul (4.70-6.10); RED CELL DISTRIBUTION WIDTH 12.4 % (11.5-14.5); WHITE BLOOD COUNT 13.4 10^3/ul (4.8-10.8)
[2017-08-09 06:01] LABS: CALCIUM 8.4 mg/dl (8.4-10.2); CREATININE 0.73 mg/dl (0.61-1.24); MAGNESIUM 1.8 mg/dl (1.7-2.5); PHOSPHORUS 3.1 mg/dl (2.5-4.9); POTASSIUM 3.3 mmol/L (3.5-5.1)
[2017-08-09] MEDS: metroNIDAZOLE 500 MG/NS (PMX) 100 ML IVPB SCH ×3 (06:02→21:14)
[2017-08-09] MEDS: ONDANSETRON 4 MG INJ IV PRN ×3 (08:06→21:06)
[2017-08-09 08:22] VITALS: BP 135/77; RESP 18
[2017-08-09] MEDS ORDERED: GUAIFENESIN/CODEINE 5ML CUP PO PRN (10:00)
[2017-08-09] MEDS ORDERED: POTASSIUM CHLORIDE 250 ML IVPB ONE (10:30)
[2017-08-09] MEDS: LEVOFLOXACIN 750MG/D5W (PMX) 150 ML IVPB SCH (11:16)
--- NOTE | 2017-08-09 13:20 | PN ---
Date/Time of Note Date/Time of Note DATE: 08/09/17 TIME: 13:18 Assessment/Plan VTE Prophylaxis VTE Prophylaxis Intervention: ambulation Lines/Catheters IV [facility] [place] Assessment/Plan Chief Complaint/Hosp Course Patient is a 37-year-old male with a past medical history of hypertension who presents with worsening abdominal pain for 1 week, found to have possible abscess and appendicitis. Assessment and plan Abdominal pain Acute sigmoid diverticulitis with abscess Perforated abscess Appendicitis Hypertension -General surgery has been consulted, recs appreciated -full liquids, advance as tolerated -abx levaquin, flagyl. -Radiology cannot perform abscess drainage, too small of an abscess -Supportive care for now, general surgery recommendations appreciated -Continue home meds when able -needs outpatient colonoscopy within 2 months DISPO: will evaluate clinically daily, will transition to PO meds when stable and dispo accordingly Problems: Subjective 24 Hr Interval Summary Free Text/Dictation no acute change, still has abdominal pain, multiple bowel movements. Exam/Review of Systems Vital Signs Vitals Vital Signs Date Time Temp Pulse Resp B/P Pulse Ox O2 Delivery O2 Flow Rate FiO2 08/09/17 08:22 97.9 83 18 135/77 93 08/06/17 21:50 Room Air Intake and Output 08/08/17 08/08/17 08/09/17 15:00 23:00 07:00 Intake Total 825 ml 1375 ml 100 ml Balance 825 ml 1375 ml 100 ml Exam Physical exam General: Patient is laying in bed and answers questions appropriately Mentation: Patient is alert and oriented 4, Head: Normocephalic atraumatic Eyes: EOMI, pupils reactive to light Neck: Supple, nontender, midline Respiratory: Clear to auscultation bilaterally Cardiovascular: regular rate, no obvious murmurs Gastrointestinal: mildly tender to palpation, worse in lower quadrants, bowel sounds heard. Neurological: Moves all extremities spontaneously Skin: No new skin lesions Results Result Diagram: 08/09/17 0507 08/09/17 0507 Results 24 hrs Laboratory Tests Test 08/09/17 05:07 White Blood Count 13.4 H Red Blood Count 4.53 L Hemoglobin 12.8 L Hematocrit 38.8 L Mean Corpuscular Volume 85.7 Mean Corpuscular Hemoglobin 28.3 L Mean Corpuscular Hemoglobin Concent 33.0 Red Cell Distribution Width 12.4 Platelet Count 355 Mean Platelet Volume 10.6 H Neutrophils % 79.6 H Lymphocytes % 11.0 L Monocytes % 7.7 Eosinophils % 1.0 Basophils % 0.3 Nucleated Red Blood Cells % 0.0 Neutrophils # 10.7 H Lymphocytes # 1.5 Monocytes # 1.0 H Eosinophils # 0.1 Basophils # 0.0 Nucleated Red Blood Cells # 0.0 Sodium Level 140 Potassium Level 3.3 L Chloride Level 105 Carbon Dioxide Level 25 Anion Gap 13 Blood Urea Nitrogen 10 Creatinine 0.73 Glucose Level 103 Calcium Level 8.4 Phosphorus Level 3.1 Magnesium Level 1.8 Medications Medications Current Medications Ondansetron HCl (Zofran Inj) 4 mg Q6H PRN IV NAUSEA AND/OR VOMITING Last administered on 08/09/17 08:06; Admin Dose 4 MG; Start 08/06/17 at 23:00 Hydromorphone HCl (Dilaudid) 1 mg Q3H PRN IV PAIN Last administered on 11:15; Admin Dose 1 MG; Start 08/07/17 at 21:00 Metoclopramide HCl 10 mg 10 mg Q6H PRN IV NAUSEA Last administered on 11:09; Admin Dose 10 MG; Start 08/07/17 at 21:00 Metronidazole 100 ml @ 100 mls/hr Q8 IVPB Last administered on 08/09/17 13: 12; Admin Dose 100 MLS/HR; Start 08/08/17 at 10:00 Levofloxacin/ Dextrose 150 ml @ 100 mls/hr Q24H IVPB Last administered on 11:16; Admin Dose 100 MLS/HR; Start 08/08/17 at 11:00 Potassium Chloride (KCl 40 MEQ/250 ML NS) 250 ml @ 62.5 mls/hr ONCE ONCE IVPB ; Start 08/09/17 at 10:30; Stop 08/09/17 at 14:29 Guaifenesin/ Codeine Phosphate (Robitussin Ac Liquid Cup) 5 ml Q4H PRN PO cough ; Start 08/09/17 at 10:00 JOSE F DE PAZ Aug 09, 2017 13:20
[2017-08-09 14:56] VITALS: BP 148/96; RESP 19
--- NOTE | 2017-08-09 16:05 | PN ---
Date/Time of Note Date/Time of Note DATE: 08/09/17 TIME: 16:02 Assessment/Plan Lines/Catheters IV Catheter Type (from [facility]): Saline Lock Assessment/Plan Assessment/Plan [facility] Progress Note Date of Service: 08/09/2017 Location of Service: [address] Today's Assessment & Plan: Overall has remained stable, improving and doing relatively well. Abdomen appears to be improved compared to yesterday. Patient several bowel movements are encouraging. White blood cell count is trending down. No indication for acute surgical intervention. Discussed with patient and his and answered all questions. Patient and family appear to understand and agreed with plans. Previous assessment that applies today: A very-pleasant 37-year-old gentleman with comorbidity of BMI 35, presenting with abdominal pain which is likely due to Hinchey class II diverticulitis with focal perforation but adequate containment. I do not personally believe that there is active acute appendicitis, but the current treatment for the diverticulitis should also treat any early appendicitis that the patient may have. With above assessment, I've recommended the followin. Keep in-house 2. Full liquid diet 3. Continue intravenous fluids 4. Continue broad-spectrum antimicrobials (usual regimen is IV Cipro and IV Flagyl) with plans of oral conversion once the patient clinically improves 5. Strict I's and O's 6. Labs in a.m. 7. Once patient starts clinically improving (we will decide in a multidisciplinary fashion), the plan would be to start patient on liquid diet and advancing slowly to a high-fiber diet 8. Long-term plan would be outpatient colonoscopy after 2-3 months from current episode Thank you very much for having me involved in the care of this very pleasant patient and wonderful family. If you have any questions, please feel free to contact me at [phone]. Nature of presenting problem: High severity Please note that, given the extensive number of diagnoses or management options , the extensive amount and/or complexity of data needed to be reviewed, and high risk of complications and/or morbidity or mortality, this qualifies as high complexity type of decision-making. Disclaimers: 1. Inadvertent spelling and grammatical errors are likely due to electronic health record (EHR)/dictation software used and do not reflect on the quality of delivered patient care. 2. The electronic timestamp recorded on this note does not necessarily reflect the actual date and time of the visit or the service. 3. Portions of this note may have been created through electronic templates and computer algorithms that might bring in information either from the system or from other physicians and providers. Please note that such information may or may not contain errors, the occurrence of which are outside of my control. In general (but not always) this happens either in the beginning or at the end of the note. The portion of the note that I have created are generally done in 1 continuous block of text, flanked at the beginning and at the end by " ", and entered into one field in the EHR. 4. There may be other unanticipated errors in the note that are outside of my control. I can only attest to the portions of the note that I have created. Updated clinical summary: A very-pleasant 37-year-old gentleman with comorbidity of BMI 35, presenting with abdominal pain which is likely due to Hinchey class II diverticulitis with focal perforation but adequate containment. Comorbidities: 1. BMI 35 2. Possibly anxiety Subjective: No major events or complaints; minimal abd pain and under control with medications; no n/v/d; no sob or cp; + bowel activity; + flatus; BM; minimal activity Objective: Vitals: See below Exam: GENERAL: On exam, the patient was laying in bed and appeared to be comfortable and in no acute distress. ABDOMEN: Soft, minimally tender, more in the lower quadrants and in the upper quadrants and less on the right than on the left, and nondistended. There are no peritoneal signs or guarding. SKIN: Skin appears to be pink and feels warm to touch. NEUROLOGIC: Patient is awake, alert, and follows commands appropriately. Exam/Review of Systems Vital Signs Vitals Vital Signs Date Time Temp Pulse Resp B/P Pulse Ox O2 Delivery O2 Flow Rate FiO2 08/09/17 14:56 97.7 78 19 148/96 95 08/06/17 21:50 Room Air Intake and Output 08/08/17 08/08/17 08/09/17 15:00 23:00 07:00 Intake Total 825 ml 1375 ml 100 ml Balance 825 ml 1375 ml 100 ml Results Result Diagram: 08/09/17 0507 08/09/17 0507 MARJAN BATES M.D. Aug 09, 2017 16:05
[2017-08-09 19:55] VITALS: BP 139/83; RESP 20
[2017-08-10] MEDS: HYDROmorphONE 1 MG/ML SYG IV PRN ×3 (00:13→07:39)
[2017-08-10] MEDS: METOCLOPRAMIDE 10 MG INJ IV PRN (00:13)
[2017-08-10 02:05] VITALS: BP 139/77; RESP 20
[2017-08-10] MEDS: ONDANSETRON 4 MG INJ IV PRN (04:19)
[2017-08-10] MEDS: metroNIDAZOLE 500 MG/NS (PMX) 100 ML IVPB SCH ×3 (05:27→21:18)
[2017-08-10 05:44] LABS: BASOPHILS % 0.3 % (0.0-2.0); EOSINOPHILS # 0.1 10^3/ul (0.0-0.5); EOSINOPHILS % 0.9 % (0.0-7.0); HEMATOCRIT 38.2 % (42.0-52.0); LYMPHOCYTES # 1.8 10^3/ul (0.8-2.9); MEAN CORPUSCULAR HEMOGLOBIN 28.8 pg (29.0-33.0); MEAN CORPUSCULAR VOLUME 84.5 fl (82.0-101.0); MEAN PLATELET VOLUME 10.5 fl (7.4-10.4); MONOCYTE # 0.9 10^3/ul (0.3-0.9); MONOCYTES % 6.7 % (0.0-11.0); NEUTROPHIL # 10.8 10^3/ul (1.6-7.5); NEUTROPHILS % 78.5 % (39.0-77.0); PLATELET COUNT 382 10^3/UL (140-415); RED BLOOD COUNT 4.52 10^6/ul (4.70-6.10); RED CELL DISTRIBUTION WIDTH 12.3 % (11.5-14.5); WHITE BLOOD COUNT 13.8 10^3/ul (4.8-10.8)
[2017-08-10 06:13] LABS: ALBUMIN 3.6 g/dl (3.3-4.9); ALBUMIN/GLOBULIN RATIO 1.12; BILIRUBIN,INDIRECT 0.7 mg/dl (0-1.1); BILIRUBIN,TOTAL 0.7 mg/dl (0.2-1.3); CALCIUM 8.5 mg/dl (8.4-10.2); CREATININE 0.66 mg/dl (0.61-1.24); POTASSIUM 3.5 mmol/L (3.5-5.1); TOTAL PROTEIN 6.8 g/dl (6.1-8.1)
[2017-08-10 07:21] VITALS: BP 131/80; RESP 18
[2017-08-10] MEDS: LEVOFLOXACIN 750MG/D5W (PMX) 150 ML IVPB SCH (10:22)
[2017-08-10] MEDS: OXYCODONE/ACETAMINOPHEN (10/325) TAB PO PRN ×3 (12:53→21:31)
[2017-08-10 13:44] VITALS: BP 134/84; RESP 18
--- NOTE | 2017-08-10 14:31 | PN ---
Date/Time of Note Date/Time of Note DATE: 08/10/17 TIME: 14:30 Assessment/Plan VTE Prophylaxis VTE Prophylaxis Intervention: ambulation Assessment/Plan Chief Complaint/Hosp Course Patient is a 37-year-old male with a past medical history of hypertension who presents with worsening abdominal pain for 1 week, found to have possible abscess and appendicitis. Assessment and plan Abdominal pain Acute sigmoid diverticulitis with abscess Perforated abscess Appendicitis Hypertension -General surgery has been consulted, recs appreciated -high fiber diet -changing to oral pain meds today, will keep dilaudid on Q12 for breakthrough pain. -abx levaquin, flagyl. -Radiology cannot perform abscess drainage, too small of an abscess -Supportive care for now, general surgery recommendations appreciated -Continue home meds when able -needs outpatient colonoscopy within 2 months DISPO: will evaluate clinically daily, will transition to PO meds when stable and dispo accordingly Problems: Subjective 24 Hr Interval Summary Free Text/Dictation still mild tenderness, wants to attempt to change pain medications to orals Exam/Review of Systems Vital Signs Vitals Vital Signs Date Time Temp Pulse Resp B/P Pulse Ox O2 Delivery O2 Flow Rate FiO2 08/10/17 13:44 98.1 88 18 134/84 97 08/06/17 21:50 Room Air Intake and Output 08/09/17 08/09/17 08/10/17 15:00 23:00 07:00 Intake Total 1177 ml Output Total 550 ml Balance 627 ml Exam Physical exam General: Patient is laying in bed and answers questions appropriately Mentation: Patient is alert and oriented 4, Head: Normocephalic atraumatic Eyes: EOMI, pupils reactive to light Neck: Supple, nontender, midline Respiratory: Clear to auscultation bilaterally Cardiovascular: regular rate, no obvious murmurs Gastrointestinal: mildly tender to palpation, worse in lower quadrants, bowel sounds heard. Neurological: Moves all extremities spontaneously Skin: No new skin lesions Results Result Diagram: 08/10/1752108/10/17521 Results 24 hrs Laboratory Tests Test 08/10/17 05:22 White Blood Count 13.8 H Red Blood Count 4.52 L Hemoglobin 13.0 L Hematocrit 38.2 L Mean Corpuscular Volume 84.5 Mean Corpuscular Hemoglobin 28.8 L Mean Corpuscular Hemoglobin Concent 34.0 Red Cell Distribution Width 12.3 Platelet Count 382 Mean Platelet Volume 10.5 H Neutrophils % 78.5 H Lymphocytes % 13.0 L Monocytes % 6.7 Eosinophils % 0.9 Basophils % 0.3 Nucleated Red Blood Cells % 0.0 Neutrophils # 10.8 H Lymphocytes # 1.8 Monocytes # 0.9 Eosinophils # 0.1 Basophils # 0.0 Nucleated Red Blood Cells # 0.0 Sodium Level 140 Potassium Level 3.5 Chloride Level 103 Carbon Dioxide Level 26 Anion Gap 15 Blood Urea Nitrogen 10 Creatinine 0.66 Glucose Level 104 Lactic Acid Level 0.7 Calcium Level 8.5 Total Bilirubin 0.7 Direct Bilirubin 0.00 Indirect Bilirubin 0.7 Aspartate Amino Transf (AST/SGOT) 13 L Alanine Aminotransferase (ALT/SGPT) 27 Alkaline Phosphatase 64 Total Protein 6.8 Albumin 3.6 Globulin 3.20 Albumin/Globulin Ratio 1.12 Medications Medications Current Medications Ondansetron HCl (Zofran Inj) 4 mg Q6H PRN IV NAUSEA AND/OR VOMITING Last administered on 08/10/17 04:19; Admin Dose 4 MG; Start 08/06/17 at 23:00 Metoclopramide HCl 10 mg 10 mg Q6H PRN IV NAUSEA Last administered on 00:13; Admin Dose 10 MG; Start 08/07/17 at 21:00 Metronidazole 100 ml @ 100 mls/hr Q8 IVPB Last administered on 08/10/17 13: 34; Admin Dose 100 MLS/HR; Start 08/08/17 at 10:00 Levofloxacin/ Dextrose (Levaquin 750 Mg/ D5W 150 ml (Pmx)) 150 ml @ 100 mls/hr Q24H IVPB Last administered on 08/10/17 10:22; Admin Dose 100 MLS/HR; Start 08/08/17 at 11:00 Guaifenesin/ Codeine Phosphate (Robitussin Ac Liquid Cup) 5 ml Q4H PRN PO cough ; Start 08/09/17 at 10:00 Hydromorphone HCl (Dilaudid) 1 mg Q12H PRN IV PAIN; Start 08/10/17 at 21:00 Oxycodone/ Acetaminophen (Endocet (10/ 325)) 1 tab Q4H PRN PO PAIN Last administered on 08/10/17 12:53; Admin Dose 1 TAB; Start 08/10/17 at 11:00 BALDEV,DRE Aug 10, 2017 14:31
[2017-08-10 20:00] VITALS: BP 139/82; PULSE 92; RESP 18
--- NOTE | 2017-08-10 20:47 | PN ---
Date/Time of Note Date/Time of Note DATE: 08/10/17 TIME: 20:44 Assessment/Plan Assessment/Plan Assessment/Plan [facility] Progress Note Date of Service: 08/10/2017 Location of Service: [address] Today's Assessment & Plan: Overall has remained stable and continuing to improve. No indication for acute surgical intervention. Would like to be able to discharge home in the next 24- 48 hours if he can demonstrate continued clinical improvement with oral antimicrobials and medications. Discussed with patient and answered all questions. Patient appeared to understand and agreed with plans. Previous assessment that applies today: A very-pleasant 37-year-old gentleman with comorbidity of BMI 35, presenting with abdominal pain which is likely due to Hinchey class II diverticulitis with focal perforation but adequate containment. I do not personally believe that there is active acute appendicitis, but the current treatment for the diverticulitis should also treat any early appendicitis that the patient may have. With above assessment, I've recommended the followin. Keep in-house 2. Regular diet 3. Saline lock IV 4. Continue broad-spectrum antimicrobials (usual regimen is IV Cipro and IV Flagyl) with conversion to orals 5. Strict I's and O's 6. Labs in a.m. 7. Once patient starts clinically improving (we will decide in a multidisciplinary fashion), the plan would be to start patient on liquid diet and advancing slowly to a high-fiber diet (likely in the next 24-48 hours) 8. Long-term plan would be outpatient colonoscopy after 2-3 months from current episode Thank you very much for having me involved in the care of this very pleasant patient and wonderful family. If you have any questions, please feel free to contact me at [phone]. Nature of presenting problem: High severity Please note that, given the extensive number of diagnoses or management options , the extensive amount and/or complexity of data needed to be reviewed, and high risk of complications and/or morbidity or mortality, this qualifies as high complexity type of decision-making. Disclaimers: 1. Inadvertent spelling and grammatical errors are likely due to electronic health record (EHR)/dictation software used and do not reflect on the quality of delivered patient care. 2. The electronic timestamp recorded on this note does not necessarily reflect the actual date and time of the visit or the service. 3. Portions of this note may have been created through electronic templates and computer algorithms that might bring in information either from the system or from other physicians and providers. Please note that such information may or may not contain errors, the occurrence of which are outside of my control. In general (but not always) this happens either in the beginning or at the end of the note. The portion of the note that I have created are generally done in 1 continuous block of text, flanked at the beginning and at the end by " ", and entered into one field in the EHR. 4. There may be other unanticipated errors in the note that are outside of my control. I can only attest to the portions of the note that I have created. Updated clinical summary: A very-pleasant 37-year-old gentleman with comorbidity of BMI 35, presenting with abdominal pain which is likely due to Hinchey class II diverticulitis with focal perforation but adequate containment. Comorbidities: 1. BMI 35 2. Possibly anxiety Subjective: No major events or complaints; minimal to no abd pain and under control with medications; no n/v/d; no sob or cp; + bowel activity; + flatus; + BM; + activity Objective: Vitals: See below Exam: GENERAL: On exam, the patient was laying in bed and appeared to be comfortable and in no acute distress. ABDOMEN: Soft, nontender, and nondistended. There are no peritoneal signs or guarding. SKIN: Skin appears to be pink and feels warm to touch. NEUROLOGIC: Patient is awake, alert, and follows commands appropriately. Exam/Review of Systems Vital Signs Vitals Vital Signs Date Time Temp Pulse Resp B/P Pulse Ox O2 Delivery O2 Flow Rate FiO2 08/10/17 13:44 98.1 88 18 134/84 97 08/06/17 21:50 Room Air Intake and Output 08/09/17 08/09/17 08/10/17 14:59 22:59 06:59 Intake Total 1177 ml Output Total 550 ml Balance 627 ml Results Result Diagram: 08/10/17 0522 08/10/17 0522 MARJAN BATES M.D. Aug 10, 2017 20:47
[2017-08-10 20:59] VITALS: BP 139/82; PULSE 90
[2017-08-10] MEDS ORDERED: HYDROmorphONE 1 MG/ML SYG IV PRN (21:00)
[2017-08-10 21:27] VITALS: RESP 20
[2017-08-11] MEDS: OXYCODONE/ACETAMINOPHEN (10/325) TAB PO PRN ×3 (04:36→20:17)
[2017-08-11] MEDS: metroNIDAZOLE 500 MG/NS (PMX) 100 ML IVPB SCH (05:27)
[2017-08-11 06:26] LABS: BASOPHIL # 0.1 10^3/ul (0.0-0.1); BASOPHILS % 0.5 % (0.0-2.0); EOSINOPHILS # 0.2 10^3/ul (0.0-0.5); EOSINOPHILS % 1.2 % (0.0-7.0); HEMATOCRIT 39.6 % (42.0-52.0); HEMOGLOBIN 13.4 g/dl (14.0-18.0); LYMPHOCYTES # 2.5 10^3/ul (0.8-2.9); MEAN CORPUSCULAR HEMOGLOBIN 28.5 pg (29.0-33.0); MEAN CORPUSCULAR HGB CONC 33.8 g/dl (32.0-37.0); MEAN CORPUSCULAR VOLUME 84.3 fl (82.0-101.0); MEAN PLATELET VOLUME 10.8 fl (7.4-10.4); MONOCYTE # 0.9 10^3/ul (0.3-0.9); MONOCYTES % 6.6 % (0.0-11.0); NEUTROPHIL # 10.1 10^3/ul (1.6-7.5); NEUTROPHILS % 72.8 % (39.0-77.0); PLATELET COUNT 460 10^3/UL (140-415); RED CELL DISTRIBUTION WIDTH 12.3 % (11.5-14.5); WHITE BLOOD COUNT 13.8 10^3/ul (4.8-10.8)
[2017-08-11 06:56] LABS: CALCIUM 8.7 mg/dl (8.4-10.2); CREATININE 0.73 mg/dl (0.61-1.24); POTASSIUM 3.2 mmol/L (3.5-5.1)
[2017-08-11 07:53] VITALS: BP 146/77; RESP 16
[2017-08-11] MEDS: LEVOFLOXACIN 750 MG TABLET PO SCH (11:29)
[2017-08-11] MEDS: POTASSIUM CHLORIDE 20 MEQ POWDER FOR ORAL SOLN PO SCH ×2 (11:30→17:55)
--- NOTE | 2017-08-11 13:25 | PN ---
Date/Time of Note Date/Time of Note DATE: 08/11/17 TIME: 13:21 Assessment/Plan Lines/Catheters IV C[facility]ter Type (from [facility] Saline Lock Assessment/Plan Assessment/Plan [facility] Progress Note Date of Service: 08/11/2017 Location of Service: [address] Today's Assessment & Plan: Overall has remained stable and improved. No indication for acute surgical intervention. Ok to discharge home from my standpoint. Discussed with patient and answered all questions. Patient appeared to understand and agreed with plans. Previous assessment that applies today: A very-pleasant 37-year-old gentleman with comorbidity of BMI 35, presenting with abdominal pain which is likely due to Hinchey class II diverticulitis with focal perforation but adequate containment. I do not personally believe that there is active acute appendicitis, but the current treatment for the diverticulitis should also treat any early appendicitis that the patient may have. With above assessment, I've recommended the followin. D/c home 2. Continue Cipro and Flagyl until patient "feels good"; recommendation is having ability to continue for 3 weeks if needed, but most people are able to stop the antimicrobials after only a few days at home; I usually would give patient a prescription for these antimicrobials for a few days and enough refills to last 3 weeks, but specific instructions as above 3. Healthy bowel habits 4. Permanent change towards healthy lifestyle 5. Colonoscopy after 2-3 months from current episode Thank you very much for having me involved in the care of this very pleasant patient and wonderful family. If you have any questions, please feel free to contact me at [phone]. Nature of presenting problem: High severity Please note that, given the extensive number of diagnoses or management options , the extensive amount and/or complexity of data needed to be reviewed, and high risk of complications and/or morbidity or mortality, this qualifies as high complexity type of decision-making. Disclaimers: 1. Inadvertent spelling and grammatical errors are likely due to electronic health record (EHR)/dictation software used and do not reflect on the quality of delivered patient care. 2. The electronic timestamp recorded on this note does not necessarily reflect the actual date and time of the visit or the service. 3. Portions of this note may have been created through electronic templates and computer algorithms that might bring in information either from the system or from other physicians and providers. Please note that such information may or may not contain errors, the occurrence of which are outside of my control. In general (but not always) this happens either in the beginning or at the end of the note. The portion of the note that I have created are generally done in 1 continuous block of text, flanked at the beginning and at the end by " ", and entered into one field in the EHR. 4. There may be other unanticipated errors in the note that are outside of my control. I can only attest to the portions of the note that I have created. Updated clinical summary: A very-pleasant 37-year-old gentleman with comorbidity of BMI 35, presenting with abdominal pain which is likely due to Hinchey class II diverticulitis with focal perforation but adequate containment. Comorbidities: 1. BMI 35 2. Possibly anxiety Subjective: No major events or complaints; no abd pain and on orals; no n/v/d; no sob or cp ; + bowel activity; + flatus; + BM; + activity Objective: Vitals: See below Exam: GENERAL: On exam, the patient was laying in bed and appeared to be comfortable and in no acute distress. ABDOMEN: Soft, nontender, and nondistended. There are no peritoneal signs or guarding. SKIN: Skin appears to be pink and feels warm to touch. NEUROLOGIC: Patient is awake, alert, and follows commands appropriately. Exam/Review of Systems Vital Signs Vitals Vital Signs Date Time Temp Pulse Resp B/P Pulse Ox O2 Delivery O2 Flow Rate FiO2 08/11/17 07:53 98.1 87 16 146/77 95 08/10/17 20:59 Room Air Intake and Output 08/10/17 08/10/17 08/11/17 15:00 23:00 07:00 Intake Total 350 ml 1600 ml 440 ml Output Total 1800 ml 550 ml Balance 350 ml -200 ml -110 ml Results Result Diagram: 08/11/17 0511 08/11/17 0511 MARJAN BATES M.D. Aug 11, 2017 13:25
--- NOTE | 2017-08-11 13:48 | PN ---
Date/Time of Note Date/Time of Note DATE: 08/11/17 TIME: 13:47 Assessment/Plan VTE Prophylaxis VTE Prophylaxis Intervention: ambulation Lines/Catheters IV Catheter Type (from [facility]): Saline Lock Assessment/Plan Chief Complaint/Hosp Course Patient is a 37-year-old male with a past medical history of hypertension who presents with worsening abdominal pain for 1 week, found to have possible abscess and appendicitis. Assessment and plan Abdominal pain Acute sigmoid diverticulitis with abscess Perforated abscess Appendicitis Hypertension -General surgery has been consulted, recs appreciated -high fiber diet -changed to oral pain meds -abx levaquin, flagyl. changed to oral formulation -Radiology cannot perform abscess drainage, too small of an abscess -Supportive care for now, general surgery recommendations appreciated -Continue home meds when able -needs outpatient colonoscopy within 2 months DISPO: DC tomorrow if stable on oral medications Problems: Subjective 24 Hr Interval Summary Free Text/Dictation feels significantly better today. Exam/Review of Systems Vital Signs Vitals Vital Signs Date Time Temp Pulse Resp B/P Pulse Ox O2 Delivery O2 Flow Rate FiO2 08/11/17 07:53 98.1 87 16 146/77 95 08/10/17 20:59 Room Air Intake and Output 08/10/17 08/10/17 08/11/17 15:00 23:00 07:00 Intake Total 350 ml 1600 ml 440 ml Output Total 1800 ml 550 ml Balance 350 ml -200 ml -110 ml Exam Physical exam General: Patient is laying in bed and answers questions appropriately Mentation: Patient is alert and oriented 4, Head: Normocephalic atraumatic Eyes: EOMI, pupils reactive to light Neck: Supple, nontender, midline Respiratory: Clear to auscultation bilaterally Cardiovascular: regular rate, no obvious murmurs Gastrointestinal: very mildly tender to palpation, positive bowel sounds. Neurological: Moves all extremities spontaneously Skin: No new skin lesions Results Result Diagram: 08/11/1751008/11/17510 Results 24 hrs Laboratory Tests Test 08/11/17 05:11 White Blood Count 13.8 H Red Blood Count 4.70 Hemoglobin 13.4 L Hematocrit 39.6 L Mean Corpuscular Volume 84.3 Mean Corpuscular Hemoglobin 28.5 L Mean Corpuscular Hemoglobin Concent 33.8 Red Cell Distribution Width 12.3 Platelet Count 460 #H Mean Platelet Volume 10.8 H Neutrophils % 72.8 Lymphocytes % 18.0 Monocytes % 6.6 Eosinophils % 1.2 Basophils % 0.5 Nucleated Red Blood Cells % 0.0 Neutrophils # 10.1 H Lymphocytes # 2.5 Monocytes # 0.9 Eosinophils # 0.2 Basophils # 0.1 Nucleated Red Blood Cells # 0.0 Sodium Level 141 Potassium Level 3.2 L Chloride Level 101 Carbon Dioxide Level 29 Anion Gap 14 Blood Urea Nitrogen 9 Creatinine 0.73 Glucose Level 100 Calcium Level 8.7 Medications Medications Current Medications Ondansetron HCl (Zofran Inj) 4 mg Q6H PRN IV NAUSEA AND/OR VOMITING Last administered on 08/10/17 04:19; Admin Dose 4 MG; Start 08/06/17 at 23:00 Metoclopramide HCl (Reglan) 10 mg Q6H PRN IV NAUSEA Last administered on 00:13; Admin Dose 10 MG; Start 08/07/17 at 21:00 Guaifenesin/ Codeine Phosphate (Robitussin Ac Liquid Cup) 5 ml Q4H PRN PO cough ; Start 08/09/17 at 10:00 Hydromorphone HCl (Dilaudid) 1 mg Q12H PRN IV PAIN; Start 08/10/17 at 21:00 Oxycodone/ Acetaminophen (Endocet (10/ 325)) 1 tab Q4H PRN PO PAIN Last administered on 08/11/17 12:07; Admin Dose 1 TAB; Start 08/10/17 at 11:00 Potassium Chloride (Potassium Chloride Pwd/Soln) 40 meq Q4H PO Last administered on 08/11/17 11:30; Admin Dose 40 MEQ; Start 08/11/17 at 11:00; Stop 08/11/17 at 15:01 Levofloxacin (Levaquin) 750 mg DAILY@06 PO Last administered on 08/11/17 11: 29; Admin Dose 750 MG; Start 08/11/17 at 11:00 Metronidazole (Flagyl) 500 mg Q8 PO ; Start 08/11/17 at 14:00 JOSE F DE PAZ Aug 11, 2017 13:48
[2017-08-11 14:00] VITALS: BP 116/70; RESP 18
[2017-08-11] MEDS: metroNIDAZOLE 500 MG TAB PO SCH ×2 (14:33→21:59)
[2017-08-11 20:05] VITALS: BP 141/90; RESP 18
[2017-08-12 02:28] VITALS: BP 134/78; RESP 18
[2017-08-12] MEDS: OXYCODONE/ACETAMINOPHEN (10/325) TAB PO PRN (03:17)
[2017-08-12 06:04] LABS: BASOPHIL # 0.1 10^3/ul (0.0-0.1); BASOPHILS % 0.5 % (0.0-2.0); EOSINOPHILS # 0.2 10^3/ul (0.0-0.5); HEMATOCRIT 38.3 % (42.0-52.0); HEMOGLOBIN 12.7 g/dl (14.0-18.0); LYMPHOCYTES # 2.1 10^3/ul (0.8-2.9); LYMPHOCYTES % 13.3 % (15.0-51.0); MEAN CORPUSCULAR HEMOGLOBIN 28.4 pg (29.0-33.0); MEAN CORPUSCULAR HGB CONC 33.2 g/dl (32.0-37.0); MEAN CORPUSCULAR VOLUME 85.7 fl (82.0-101.0); MEAN PLATELET VOLUME 10.8 fl (7.4-10.4); MONOCYTE # 0.9 10^3/ul (0.3-0.9); NEUTROPHIL # 12.2 10^3/ul (1.6-7.5); NEUTROPHILS % 78.4 % (39.0-77.0); PLATELET COUNT 432 10^3/UL (140-415); RED BLOOD COUNT 4.47 10^6/ul (4.70-6.10); RED CELL DISTRIBUTION WIDTH 12.8 % (11.5-14.5); WHITE BLOOD COUNT 15.5 10^3/ul (4.8-10.8)
[2017-08-12] MEDS: LEVOFLOXACIN 750 MG TABLET PO SCH (06:11)
[2017-08-12] MEDS: metroNIDAZOLE 500 MG TAB PO SCH (06:11)
[2017-08-12 06:55] LABS: CALCIUM 8.9 mg/dl (8.4-10.2); CREATININE 0.73 mg/dl (0.61-1.24); MAGNESIUM 1.7 mg/dl (1.7-2.5); PHOSPHORUS 3.9 mg/dl (2.5-4.9); POTASSIUM 3.6 mmol/L (3.5-5.1)
[2017-08-12 08:17] VITALS: BP 138/80; RESP 18
--- NOTE | 2017-08-12 09:53 | PDOCDIS ---
Discharge Instructions CONDITION Patient Condition: Stable HOME CARE INSTRUCTIONS: Special Diet: regular ACTIVITY: Activity Restrictions: Slowly Increase Activity FOLLOW UP/APPOINTMENTS Follow-up Plan 1. Take all medication as directed 2. Follow up with your primary care provider for repeat labs (CBC/Renal panel/Mg) 3. Follow up with GI doctor within 2 months for colonoscopy. JOSE F DE PAZ Aug 12, 2017 09:53
[2017-08-12] MEDS ORDERED: ONDA4TAB8 PO (09:56)
[2017-08-12] MEDS ORDERED: LEVO750T25 PO (09:56)
[2017-08-12] MEDS ORDERED: OXYC-431 PO (09:56)
[2017-08-12] MEDS ORDERED: METR500T PO (09:56)
[2017-08-12] MEDS ORDERED: POTASSIUM CHLORIDE 20 MEQ POWDER FOR ORAL SOLN PO ONE (10:00)
--- NOTE | 2017-08-12 10:32 | PN ---
Date/Time of Note Date/Time of Note DATE: 08/12/17 TIME: 10:30 Assessment/Plan Lines/Catheters IV Catheter Type (from [facility]): Saline Lock Assessment/Plan Assessment/Plan [facility] Progress Note Date of Service: 08/12/2017 Location of Service: [address] Today's Assessment & Plan: Overall has remained stable and improved. No indication for acute surgical intervention. Even though the patient's white blood cell count sandra to 15, he appears to be doing so well and his abdomen is so benign that I agreed with the patient's request to allow him to get discharged today with close outpatient follow-up. I also discussed this with Dr. Latham and the team is in agreement with the plan. Patient and his clearly understood that if there is any worsening of his clinical condition, for him to contact us and to re-present to the hospital for further cares. Discussed with patient and his and answered all questions. Patient and family appeared to understand and agreed with plans. Previous assessment that applies today: A very-pleasant 37-year-old gentleman with comorbidity of BMI 35, presenting with abdominal pain which is likely due to Hinchey class II diverticulitis with focal perforation but adequate containment. I do not personally believe that there is active acute appendicitis, but the current treatment for the diverticulitis should also treat any early appendicitis that the patient may have. With above assessment, I've recommended the followin. D/c home 2. Continue Cipro and Flagyl until patient "feels good"; recommendation is having ability to continue for 3 weeks if needed, but most people are able to stop the antimicrobials after only a few days at home; I usually would give patient a prescription for these antimicrobials for a few days and enough refills to last 3 weeks, but specific instructions as above 3. Healthy bowel habits 4. Permanent change towards healthy lifestyle 5. Colonoscopy after 2-3 months from current episode Thank you very much for having me involved in the care of this very pleasant patient and wonderful family. If you have any questions, please feel free to contact me at [phone]. Nature of presenting problem: High severity Please note that, given the extensive number of diagnoses or management options , the extensive amount and/or complexity of data needed to be reviewed, and high risk of complications and/or morbidity or mortality, this qualifies as high complexity type of decision-making. Disclaimers: 1. Inadvertent spelling and grammatical errors are likely due to electronic health record (EHR)/dictation software used and do not reflect on the quality of delivered patient care. 2. The electronic timestamp recorded on this note does not necessarily reflect the actual date and time of the visit or the service. 3. Portions of this note may have been created through electronic templates and computer algorithms that might bring in information either from the system or from other physicians and providers. Please note that such information may or may not contain errors, the occurrence of which are outside of my control. In general (but not always) this happens either in the beginning or at the end of the note. The portion of the note that I have created are generally done in 1 continuous block of text, flanked at the beginning and at the end by " ", and entered into one field in the EHR. 4. There may be other unanticipated errors in the note that are outside of my control. I can only attest to the portions of the note that I have created. Updated clinical summary: A very-pleasant 37-year-old gentleman with comorbidity of BMI 35, presenting with abdominal pain which is likely due to Hinchey class II diverticulitis with focal perforation but adequate containment. Comorbidities: 1. BMI 35 2. Possibly anxiety Subjective: No major events or complaints other than minor abdominal pain that resolved overnight; currently no abd pain and on orals; no n/v/d; no sob or cp; + bowel activity; + flatus; + BM; + activity Objective: Vitals: See below Exam: GENERAL: On exam, the patient was laying in bed and appeared to be comfortable and in no acute distress. ABDOMEN: Soft, nontender, and nondistended. There are no peritoneal signs or guarding. SKIN: Skin appears to be pink and feels warm to touch. NEUROLOGIC: Patient is awake, alert, and follows commands appropriately. Exam/Review of Systems Vital Signs Vitals Vital Signs Date Time Temp Pulse Resp B/P Pulse Ox O2 Delivery O2 Flow Rate FiO2 10/15/17 08:17 98.4 84 18 138/80 97 08/10/17 20:59 Room Air Intake and Output 08/11/17 08/11/17 08/12/17 15:00 23:00 07:00 Intake Total 3280 ml 520 ml Output Total 5000 ml 875 ml Balance -1720 ml -355 ml Results Result Diagram: 08/12/17 0456 08/12/17 0456 MARJAN BATES M.D. Aug 12, 2017 10:32
--- NOTE | 2017-08-12 12:07 | DS ---
Date/Time of Note Date/Time of Note DATE: 08/12/17 TIME: 12:06 Discharge Summary Admission/Discharge Info Admit Date/Time Aug 06, 2017 at 21:11 Discharge Date/Time Aug 12, 2017 at 11:07 Patient Condition: Stable Hx of Present Illness This is a 37-year-old male with a history of hypertension and diverticulitis who presented to the emergency department complaining of abdominal pain 1 week. Pain is diffuse but worse on the bilateral lower region, right worse than left. He also reported associated nausea. When he presented to the ER, CT /abdomen pelvis showed perforated diverticulitis and an early acute appendicitis. Hospital Course Discharge Diagnosis Abdominal pain Acute sigmoid diverticulitis with abscess Perforated abscess Appendicitis Hypertension Patient is a 37-year-old male with a past medical history of hypertension who originally presented for worsening abdominal pain for 1 week. Found to have possible abscess and appendicitis. Patient was managed conservatively by general surgery with IV antibiotics and pain control and patient's clinical status was monitored while in the hospital. Patient's white count and vitals as well as pain under control and patient has been tolerating oral medications, patient will be discharged to follow-up with his primary care provider within 1 week for repeat labs as patient's white count had a mild increase, however general surgery felt patient was doing well and did approve discharge. It was reiterated to the patient that he needs to continue a high-fiber diet and follow -up with a primary care provider for repeat labs within 1 week. It was also explained to the patient that he will need to follow-up with a GI doctor within 2 months for outpatient colonoscopy. Patient agrees to this plan and will take all medications as indicated. Patient will be sent home with pain medication, as well as oral antibiotics for a total treatment course of 14 days. Home Meds Active Scripts Ondansetron Hcl* (Zofran*) 4 Mg Tablet, 4 MG PO Q8 Y for NAUSEA AND OR VOMITING , #10 TAB Prov:JOSE F DE PAZ 08/12/17 Oxycodone HCl/Acetaminophen (Oxycodone-Acetaminophen 10-325) 1 Each Tablet, 1 TAB PO Q6 Y for PAIN, #32 TAB Prov:JOSE F DE PAZ 08/12/17 Metronidazole* (Flagyl*) 500 Mg Tablet, 500 MG PO Q8 for 8 Days, #24 TAB Prov:JOSE F DE PAZ 08/12/17 Levofloxacin* (Levaquin*) 750 Mg Tablet, 750 MG PO DAILY for 8 Days, #8 TAB Prov:JOSE F DE PAZ 08/12/17 Follow-up Plan 1. Take all medication as directed 2. Follow up with your primary care provider for repeat labs (CBC/Renal panel/Mg) 3. Follow up with GI doctor within 2 months for colonoscopy. Primary Care Provider Care Physician No Primary Time spent on discharge: > 30 minutes Pending Labs Laboratory Tests Test 08/12/17 04:56 White Blood Count 15.510^3/ul (4.8-10.8) Red Blood Count 4.4710^6/ul (4.70-6.10) Hemoglobin 12.7g/dl (14.0-18.0) Hematocrit 38.3% (42.0-52.0) Mean Corpuscular Volume 85.7fl (82.0-101.0) Mean Corpuscular Hemoglobin 28.4pg (29.0-33.0) Mean Corpuscular Hemoglobin Concent 33.2g/dl (32.0-37.0) Red Cell Distribution Width 12.8% (11.5-14.5) Platelet Count 66036^3/UL (140-415) Mean Platelet Volume 10.8fl (7.4-10.4) Neutrophils % 78.4% (39.0-77.0) Lymphocytes % 13.3% (15.0-51.0) Monocytes % 6.0% (0.0-11.0) Eosinophils % 1.0% (0.0-7.0) Basophils % 0.5% (0.0-2.0) Nucleated Red Blood Cells % 0.0/100WBC (0.0-0.0) Neutrophils # 12.210^3/ul (1.6-7.5) Lymphocytes # 2.110^3/ul (0.8-2.9) Monocytes # 0.910^3/ul (0.3-0.9) Eosinophils # 0.210^3/ul (0.0-0.5) Basophils # 0.110^3/ul (0.0-0.1) Nucleated Red Blood Cells # 0.010^3/ul (0.0-0.0) Sodium Level 142mmol/L (135-144) Potassium Level 3.6mmol/L (3.5-5.1) Chloride Level 103mmol/L (97-110) Carbon Dioxide Level 28mmol/L (21-31) Anion Gap 15 (8-16) Blood Urea Nitrogen 9mg/dl (7-20) Creatinine 0.73mg/dl (0.61-1.24) Glucose Level 96mg/dl (70-220) Calcium Level 8.9mg/dl (8.4-10.2) Phosphorus Level 3.9mg/dl (2.5-4.9) Magnesium Level 1.7mg/dl (1.7-2.5) JOSE F DE PAZ Aug 12, 2017 12:07
== END 2017-08-12 11:07 | disposition home or self-care (01) | DRG 392 ==
LOC: FTE 16:15 → MS2 21:11
PROVIDERS: ADMIT Internal Medicine; ATTEND Internal Medicine
DX: K57.20 Diverticulitis of large intestine with perforation and abscess without bleeding (principal); K35.80 Unspecified acute appendicitis; I10 Essential (primary) hypertension
CPT/HCPCS: 36415; 74176; 80048; 80053; 80202; 81003; 83605; 83690; 83735; 84100; 85025; 96374; 96375; J1170; J1885; J1956; J2270; J2405; J2543; J2765; J3370; J3480; J7030; J7040; J7042; J7050